=== PATIENT | male | born 1980 | race Two or more races ===

== ENCOUNTER 2017-09-28 21:47 | Emergency (ER) | payer OTHER ==
[2017-09-28 22:50] LABS: BASOPHILS % (AUTO) 0.3 %; EOSINOPHILS % (AUTO) 0.4 %; HGB - HEMOGLOBIN 14.1 g/dL (14.0-18.0); LYMPHOCYTES # (AUTO) 1.5 10^3/uL (1.5-3.5); LYMPHOCYTES % (AUTO) 11.5 %; MEAN CORPUSCULAR HEMOGLOBIN 27.7 pg (27.0-31.0); MEAN CORPUSCULAR VOLUME 86.6 fL (80.0-94.0); MEAN PLATELET VOLUME 7.1 fL (7.4-11.4); MONOCYTES # (AUTO) 1.1 10^3/uL (0.0-1.0); MONOCYTES % (AUTO) 8.4 %; NEUTROPHILS # (AUTO) 10.5 10^3/uL (1.5-6.6); NEUTROPHILS % (AUTO) 79.4 %; PLT - PLATELET COUNT 293 10^3/uL (130-450); RED BLOOD COUNT 5.08 10^6/uL (4.70-6.10); RED CELL DISTRIBUTION WIDTH 14.3 % (12.0-15.0); WHITE BLOOD COUNT 13.2 x10^3/uL (4.8-10.8)
[2017-09-28 22:51] LABS: BILIRUBIN,URINE NEGATIVE (NEGATIVE); GLUCOSE, URINE (UA) NEGATIVE (NEGATIVE); KETONES,URINE (UA) NEGATIVE (NEGATIVE); LEUKOCYTE ESTERASE, URINE NEGATIVE (NEGATIVE); NITRITE,URINE NEGATIVE (NEGATIVE); OCCULT BLOOD,URINE NEGATIVE (NEGATIVE); PH,URINE 5.5 PH (5.0-7.5); PROTEIN,URINE NEGATIVE (NEGATIVE); UROBILINOGEN,URINE 0.2 (NORMAL) E.U./dL (NORMAL)
[2017-09-28 22:53] LABS: CLARITY,URINE CLEAR (CLEAR)
[2017-09-28 23:04] LABS: ALBUMIN 4.4 g/dL (3.2-5.5); ALBUMIN/GLOBULIN RATIO 1.3 (1.0-2.2); BILIRUBIN,TOTAL 1.1 mg/dL (0.2-1.0); CALCIUM 9.1 mg/dL (8.5-10.3); CREATININE 1.2 mg/dL (0.6-1.2); TOTAL PROTEIN 7.7 g/dL (6.7-8.2)
--- NOTE | 2017-09-28 23:21 | ED Physician Documentation ---
PD HPI ABD PAIN - Stated complaint Stated Complaint: LOW RT SIDE PX/NAUSEA - Chief complaint Chief Complaint: Abd Pain - History obtained from History obtained from: Patient - History of Present Illness Timing - onset: Other (this evening) Timing - duration: Hours Timing - details: Abrupt onset Pain level max: 9 Pain level now: 6 Quality: Pain Location: RLQ Radiation: Lower back Improved by: Other (nothing) Worsened by: Other (no exacerbating factors) Associated symptoms: Nausea. No: Fever, Vomiting, Diarrhea, Constipation Similar symptoms before: Diagnosis (some similarity to previous renal colic) Review of Systems Constitutional: reports: Reviewed and negative Cardiac: reports: Reviewed and negative Respiratory: reports: Reviewed and negative GI: reports: Abdominal Pain, Nausea. denies: Vomiting : denies: Dysuria, Frequency Musculoskeletal: reports: Back pain PD PAST MEDICAL HISTORY - Past Medical History Past Medical History: Yes : Kidney stones - Past Surgical History Past Surgical History: No - Present Medications Home Medications: Ambulatory Orders Medication Instructions Recorded Confirmed Tamsulosin [Flomax] 0.4 mg PO DAILY #7 capsule 09/29/17 oxyCODONE/ACET 5/325 [Percocet 5 1 - 2 each PO Q6H PRN #14 tablet 09/29/17 mg/325 mg] - Allergies Allergies/Adverse Reactions: Allergies Allergy/AdvReac Type Severity Reaction Status Date / Time No Known Drug Allergies Allergy Verified 03/24/14 02:06 - Social History Does the pt smoke?: No Smoking Status: Never smoker Does the pt drink ETOH?: Yes Does the pt have substance abuse?: No - Immunizations Immunizations are current?: Yes - POLST Patient has POLST: No PD ED PE NORMAL - Vitals Vital signs reviewed: Yes - General General: Alert and oriented X 3, Well developed/nourished, Other (waxing and waning apparent discomfort) - Cardiac Cardiac: RRR, No murmur - Respiratory Respiratory: No respiratory distress, Clear bilaterally - Abdomen Abdomen: Soft, Non distended, Other (trace RLQ point tenderness) - Back Back: No CVA TTP - Derm Derm: Normal color, Warm and dry, No rash Results - Vitals Vitals: Vital Signs - 24 hr 09/28/17 09/28/17 09/29/17 21:51 23:49 01:00 Temperature 36.3 C L Heart Rate 60 61 56 L Respiratory 16 18 18 Rate Blood Pressure 122/73 130/73 130/77 O2 Saturation 100 97 98 09/29/17 02:26 Temperature Heart Rate 76 Respiratory 18 Rate Blood Pressure 139/84 H O2 Saturation 99 Oxygen O2 Source Room air - Labs Labs: Laboratory Tests 09/28/17 09/28/17 09/28/17 22:40 22:40 22:40 WBC 13.2 H RBC 5.08 Hgb 14.1 Hct 44.0 MCV 86.6 MCH 27.7 MCHC 32.0 RDW 14.3 Plt Count 293 MPV 7.1 L Neut # 10.5 H Lymph # 1.5 [place] # 1.1 H Eos # 0.0 Baso # 0.0 Absolute Nucleated RBC 0.00 Nucleated RBC % 0.0 Sodium 134 L Potassium 3.7 Chloride 100 L Carbon Dioxide 27 Anion Gap 7.0 BUN 20 Creatinine 1.2 Estimated GFR (MDRD) 68 L Glucose 163 H Calcium 9.1 Total Bilirubin 1.1 H AST 26 ALT 22 Alkaline Phosphatase 78 Total Protein 7.7 Albumin 4.4 Globulin 3.3 Albumin/Globulin Ratio 1.3 Lipase 22 Urine Color YELLOW Urine Clarity CLEAR Urine pH 5.5 Ur Specific [place] >=1.030 H Urine Protein NEGATIVE Urine Glucose (UA) NEGATIVE Urine Ketones NEGATIVE Urine Occult Blood NEGATIVE Urine Nitrite NEGATIVE Urine Bilirubin NEGATIVE Urine Urobilinogen 0.2 (NORMAL) Ur Leukocyte Esterase NEGATIVE Ur Microscopic Review NOT INDICATED Urine Culture Comments NOT INDICATED - Rads (name of study) CT A/P Radiology: Prelim report reviewed, See rad report PD MEDICAL DECISION MAKING - ED course Complexity details: reviewed results, re-evaluated patient, considered differential, d/w patient Departure - Departure Disposition: 01 Home, Self Care Clinical Impression: Renal colic Condition: Good Instructions: ED Stone Renal W Colic Follow-Up: Laisha Amado MD [Primary Care Provider] - Prescriptions: oxyCODONE/ACET 5/325 [Percocet 5 mg/325 mg] 1 - 2 each PO Q6H PRN #14 tablet PRN Reason: Pain Tamsulosin [Flomax] 0.4 mg PO DAILY #7 capsule Discharge Date/Time: 09/29/17 02:33
[2017-09-28] MEDS ORDERED: MORPHINE 2 MG/ML SYRINGE IVP STA (23:32)
[2017-09-28] MEDS ORDERED: KETOROLAC 60 MG/2 ML VIAL IVP STA (23:32)
[2017-09-28] MEDS ORDERED: IOPAMIDOL-300 100 ML VIAL ONE (23:55)
[2017-09-29] MEDS ORDERED: IOPAMIDOL-300 100 ML VIAL IVP ONE (00:50)
[2017-09-29] MEDS ORDERED: MORPHINE 2 MG/ML SYRINGE IVP STA (01:02)
--- NOTE | 2017-09-29 01:36 | CT Report ---
EXAM: CT ABDOMEN AND PELVIS EXAM DATE: 09/29/2017 01:01 AM. CLINICAL HISTORY: Right flank/RLQ pain. COMPARISONS: 03/24/2014 CT. TECHNIQUE: Routine helical CT imaging was performed through the abdomen and pelvis. IV contrast: 100M L ISOVUE 300. Enteric contrast: No. Reconstructions: Coronal and sagittal. In accordance with CT protocol optimization, one or more of the following dose reduction techniques w ere utilized for this exam: automated exposure control, adjustment of mA and/or KV based on patient s ize, or use of iterative reconstructive technique. FINDINGS: Lung Bases: Unremarkable. Liver: Normal. No masses. Gallbladder/Bile Ducts: Unremarkable. Spleen: Normal. Pancreas: Normal. Adrenal Glands: Normal. Kidneys: There is a 2 x 2 mm stone at the right vesicoureteral junction resulting in mild hydroureter onephrosis and delayed renal enhancement. No additional stones seen. Peritoneal Cavity/Bowel: Normal. No free fluid, free air or adenopathy. No masses or acute inflammato ry process. The appendix is well visualized and normal. Pelvic Organs: Normal. The bladder and visualized pelvic organs are within normal limits. Vasculature: No aneurysms or other significant abnormality. Bones: No significant abnormality. Other: None. IMPRESSION: Mildly obstructing 2 mm right vesicoureteral junction stone. [facility] Referring Provider Line: [phone] SITE ID: [id number]
--- NOTE | 2017-09-29 01:36 | CT Preliminary Report ---
Exam: CT ABDOMEN/PELVIS W/ IMPRESSION: Mildly obstructing 2 mm right vesicoureteral junction stone. [facility] SITE ID: [id number]
[2017-09-29] MEDS ORDERED: oxyCODONE/ACET 5/325 Prepack 4 PO STA (02:20)
[2017-09-29] MEDS ORDERED: TAMSULOSIN 0.4 MG CAPSULE PO STA (02:20)
[2017-09-29 02:27] VITALS: BP 139/84
== END 2017-09-29 02:33 | disposition home or self-care (01) ==
LOC: ED 21:47
DX: N23 Unspecified renal colic (principal); Z87.442 Personal history of urinary calculi
CPT/HCPCS: 36415; 74177; 80053; 81003; 83690; 85025; 96374; 96375; 96376; 99283; 99284; A9270; J2270; Q9967; 81001; 87086

== ENCOUNTER 2018-06-26 01:11 | Emergency (ER) | payer OTHER ==
--- NOTE | 2018-06-26 01:14 | ED Physician Documentation ---
PD HPI BACK PAIN - Stated complaint Stated Complaint: BK PX - History of Present Illness Timing - onset: Yesterday Timing - duration: Hours Timing - details: Gradual onset Pain level max: 4 Pain level now: 4 Location: Lower, Right Quality: Pain, Spasm Associated symptoms: No: Fever, Weakness, Numbness, Incontinent of urine, Unable to urinate, Hematuria, Incontinent of stool Improves with: Rest Worsened by: Movement Similar symptoms before: Has not had sx before Recently seen: Not recently seen - Additional information Additional information: complains of new onset of right lower back pain that radiates down his right lower extremity. It is distinctly worse when he moves, movement involving his right lower back or right leg. Review of Systems Constitutional: reports: Reviewed and negative Cardiac: reports: Reviewed and negative Respiratory: reports: Reviewed and negative GI: reports: Reviewed and negative : denies: Dysuria, Frequency, Incontinent Skin: denies: Rash Musculoskeletal: reports: Back pain Neurologic: denies: Focal weakness, Numbness PD PAST MEDICAL HISTORY - Past Medical History : Kidney stones - Past Surgical History Past Surgical History: No - Present Medications Home Medications: Ambulatory Orders Medication Instructions Recorded Confirmed Cyclobenzaprine [Flexeril] 10 mg PO TID PRN #20 tablet 06/26/18 Oxycodone HCl/Acetaminophen 1 - 2 each PO Q6H PRN #14 tablet 06/26/18 [Percocet 5-325 mg Tablet] - Allergies Allergies/Adverse Reactions: Allergies Allergy/AdvReac Type Severity Reaction Status Date / Time No Known Drug Allergies Allergy Verified 06/26/18 01:28 - Social History Does the pt smoke?: No Smoking Status: Never smoker Does the pt drink ETOH?: Yes Does the pt have substance abuse?: No - Immunizations Immunizations are current?: Yes - POLST Patient has POLST: No PD ED PE NORMAL - Vitals Vital signs reviewed: Yes - General General: Alert and oriented X 3, No acute distress, Well developed/nourished - Cardiac Cardiac: RRR, No murmur, No gallop, No rub - Respiratory Respiratory: No respiratory distress, Clear bilaterally - Abdomen Abdomen: Soft, Non tender - Back Back: No CVA TTP, No spinal TTP - Derm Derm: Normal color, Warm and dry, No rash, Other - Extremities Extremities: No tenderness to palpate, Normal ROM s pain, No edema, No calf tenderness / cord - Neuro Neuro: Alert and oriented X 3, internet marketing intern 2-12 intact, No motor deficit, No sensory deficit, Normal speech Eye Opening: Spontaneous Motor: Obeys Commands Verbal: Oriented GCS Score: 15 Results - Vitals Vitals: Oxygen O2 Source Room air PD MEDICAL DECISION MAKING - ED course Complexity details: reviewed results, re-evaluated patient, considered differential, d/w patient Departure - Departure Disposition: Home, Self Care Clinical Impression: Sciatica Condition: Good Instructions: ED Sciatica Follow-Up: NINFA STORM [Primary Care Provider] - (Call in the morning to arrange for next available appointment) Prescriptions: Cyclobenzaprine [Flexeril] 10 mg PO TID PRN #20 tablet PRN Reason: Spasms Oxycodone HCl/Acetaminophen [Percocet 5-325 mg Tablet] 1 - 2 each PO Q6H PRN #14 tablet PRN Reason: pain Forms: Activity restrictions Discharge Date/Time: 06/26/18 02:06
[2018-06-26] MEDS ORDERED: CYCLOBENZAPRINE 10 MG TABLET PO STA (01:55)
[2018-06-26] MEDS ORDERED: oxyCODONE 5 MG TABLET PO STA (01:55)
[2018-06-26] MEDS ORDERED: DEXAMETHASONE 10 MG/ML VIAL PO STA (01:55)
[2018-06-26 02:05] VITALS: BP 129/86
== END 2018-06-26 02:06 | disposition home or self-care (01) ==
LOC: ED 01:11
DX: M54.31 Sciatica, right side (principal)
CPT/HCPCS: 99283; A9270

== ENCOUNTER 2023-03-03 15:42 | Outpatient (CLI) | payer OTHER ==
--- NOTE | 2023-03-03 16:21 | XRAY Report ---
PROCEDURE: Shoulder 3 View LT INDICATIONS: PAIN IN LEFT SHOULDER TECHNIQUE: 3 views of the shoulder were acquired. COMPARISON: None. FINDINGS: Bones: No fractures or dislocations. No suspicious bony lesions. Visualized ribs appear intact. Soft tissues: No suspicious soft tissue calcifications. The visualized lungs are within normal limi ts. IMPRESSION: No visualized acute fracture or dislocation. However, occult injury cannot be excluded. Recommend rubina rt interval imaging follow-up in 7-10 days as clinically indicated for additional evaluation. Reviewed by: Gayle Wolfe MD on 03/03/2023 4:20 PM PDT Approved by: Gayle Wolfe MD on 03/03/2023 4:20 PM PDT Station ID: [id number]
== END 2023-03-03 15:43 | disposition home or self-care (01) ==
LOC: DI 15:42
PROVIDERS: ATTEND Nurse Practitioner
DX: M25.512 Pain in left shoulder (principal)

== ENCOUNTER 2023-05-16 06:54 | Outpatient (CLI) | payer OTHER ==
--- NOTE | 2023-05-16 10:12 | MRI Report ---
PROCEDURE: SHOULDER WO - LT INDICATIONS: SHOULDER PAIN TECHNIQUE: Noncontrast oblique coronal T2 fast spin echo with fat saturation, oblique sagittal T1 spin echo and T2 fast spin echo with fat saturation, axial T1 spin echo and T2 fast spin echo with fat saturation a nd 3-D gradient echo through the shoulder. COMPARISON: Left shoulder radiographs 03/03/2023. FINDINGS: Image quality: Excellent. Rotator cuff: Moderate to severe supraspinatus and infraspinatus tendinosis. There is a small focal l ow-grade partial intrasubstance tear at the distal supraspinatus insertion. The teres minor tendon is intact. There is moderate subscapularis tendinosis. The rotator cuff musculature is normal in bulk. Bones and bursae: No acute trabecular bone injury or fracture. Chronic traction cystic changes are se en in the posterosuperior humeral head. Mild partial thickness surface cartilage irregularity in the glenohumeral joint with mild degenerative spurring in the glenoid rim. Moderate degenerative changes at the acromioclavicular joint with subchondral cystic changes and somewhat prominent subchondral chrissie ma as well as small marginal osteophytes. Trace subacromial/subdeltoid bursal fluid. No significant g lenohumeral effusion. Capsule and soft tissues: There is nondisplaced tearing of the superior to posterosuperior labrum wi th a lobular paralabral cyst posterior superiorly measuring up to 17 x 6 x 15 mm. Mild tendinosis is seen at the proximal biceps long head tendon. There is effacement of normal fat signal in the rotator interval. The anterior band of the inferior glenohumeral ligament and the middle glenohumeral ligame nt are mildly thickened. IMPRESSION: 1.Nondisplaced tearing of the superior to posterosuperior labrum with a 17 mm paralabral cyst. 2.Mild proximal biceps long head tendinosis. 3.Moderate to severe diffuse rotator cuff tendinosis. Small focal low-grade partial intrasubstance te ar at the distal supraspinatus insertion. 4.Moderate acromioclavicular osteoarthrosis. Mild glenohumeral osteoarthrosis. 5.Partial effacement of the rotator interval fat and moderate thickening of the middle and inferior g lenohumeral ligaments are nonspecific, but can be seen in the setting of the clinical syndrome of adh esive capsulitis. Reviewed by: Mehran Galarza MD on 05/16/2023 10:11 AM PST Approved by: Mehran Galarza MD on 05/16/2023 10:11 AM PST Station ID: [id number]
== END 2023-05-16 06:55 | disposition home or self-care (01) ==
LOC: DI 06:54
PROVIDERS: ATTEND Student in an Organized Health Care Education/Training Program
DX: S43.432A Superior glenoid labrum lesion of left shoulder, initial encounter (principal); M67.814 Other specified disorders of tendon, left shoulder; M75.112 Incomplete rotator cuff tear or rupture of left shoulder, not specified as traumatic; M19.012 Primary osteoarthritis, left shoulder

== ENCOUNTER 2023-08-01 13:40 | Outpatient (CLI) | payer OTHER ==
[2023-08-01] MEDS ORDERED: LIDOCAINE-MPF 1% 5 ML VIAL ONE (14:05)
[2023-08-01] MEDS ORDERED: TRIAMCINOLONE 40 MG/ML VIAL ONE (14:06)
[2023-08-01] MEDS ORDERED: BUPIVACAINE 0.5% PF 10 ML VIAL ONE (14:06)
[2023-08-01] MEDS: LIDOCAINE-MPF 1% 5 ML VIAL TD ONE (15:05)
[2023-08-01] MEDS: BUPIVACAINE 0.5% PF 10 ML VIAL IM ONE (15:07)
[2023-08-01] MEDS: TRIAMCINOLONE 40 MG/ML VIAL IM ONE (15:08)
--- NOTE | 2023-08-01 16:31 | Ultrasound Report ---
PROCEDURE: Injection Single Tendon INDICATIONS: LEFT SHOULDER PAIN TECHNIQUE: The indications, alternatives, benefits, risks, and complications of the procedure were explained to the patient. Written informed consent was obtained and placed in the chart. The patient was placed in an appropriate position on the fluoroscopy table, and a site was chosen for percutaneous access un zeynep ultrasound guidance. Local anesthetic was administered using a 1% lidocaine solution. A hypoder rachel or spinal needle was then used to access the symptomatic tendon sheath. Intra-articular location of the needle tip was confirmed by real time ultrasound imaging, followed by steroid administration. The needle was then withdrawn, and a bandage applied to the puncture site. FINDINGS: Joint injected: Left shoulder, biceps tendon Medications injected: see notes Complications: None. IMPRESSION: Successful ultrasound guided administration of steroid and anaesthetic solution into the left shoulder, biceps tendon sheath . Reviewed by: Primo Ho MD on 08/01/2023 4:30 PM PDT Approved by: Primo Ho MD on 08/01/2023 4:30 PM PDT Station ID: [id number]
== END 2023-08-01 13:41 | disposition home or self-care (01) ==
LOC: DI 13:40
PROVIDERS: ATTEND Orthopaedic Surgery
DX: M25.512 Pain in left shoulder (principal)
CPT/HCPCS: 20550